=== PATIENT | female | born 1955 | race Caucasian/White ===

== ENCOUNTER → 2017-01-03 | Outpatient (CLI) | payer BC ==
[~2017-01-03] MED LIST: ACET-62 PO; ALBU1.252 AEROSOL; ALBU6.7H INH; ASCO-324 PO; CHOL100018 PO; DICL35CA PO; ESCI20TA PO; GABA-305 PO; HYDR-3841 PO; MAGN400C PO; OMEG-92 PO; OMEP40CA52 PO; QUET25TA PO; RANI-470 PEG; VITA1TAB21 PO
== END ==
LOC: WC.BC 07:50
PROVIDERS: ATTEND Physician Assistant
DX: C50.912 Malignant neoplasm of unspecified site of left female breast (principal); N64.59 Other signs and symptoms in breast; Z80.3 Family history of malignant neoplasm of breast; Z90.12 Acquired absence of left breast and nipple